=== PATIENT | female | born 1975 | race Caucasian/White ===

== ENCOUNTER 2018-03-31 15:28 | Emergency (ER) | payer OTHER, SELFPAY ==
--- NOTE | 2018-03-31 15:31 | ED_ITS ---
HPI - Epistaxis <Anali Scales PA-C - Last Filed: 03/31/18 19:03> General Chief complaint: Nasal Problem Stated complaint: NOSE WONT STOP BLEEDING Time Seen by Provider: 03/31/18 15:30 Source: patient Mode of arrival: ambulatory Limitations: no limitations History of Present Illness HPI Narrative: This healthy 42-year-old female comes in due to nosebleed today. She states that she has had nosebleeds about every other day for the last couple of weeks, but usually resolve in a few minutes. Mostly the left side. Today she states nosebleed started on the left side, then later began on the right. She states that she could not get it to stop for about an hour so came here. It has stopped now. She states that she does have allergies, but not really sneezing or blowing her nose more recently. She did use Nasacort today prior to this starting. She saw PCP and does have a referral to ENT but not being seen for about a month. She denies any trauma or injury. She denies any other new bleeding or bruising and is feeling otherwise well, no nausea. She states that she does have a history of nosebleeds but not for about 10 years. Related Data Home Medications Medication Instructions Recorded Confirmed levothyroxine 50 mcg PO DAILY 03/31/18 03/31/18 sertraline 50 mg PO DAILY 03/31/18 03/31/18 Allergies Allergy/AdvReac Type Severity Reaction Status Date / Time hydrocodone [From VICODIN] AdvReac Unknown NAUSEA Verified 03/31/18 15:40 VOMITING Review of Systems <Anali Scales PA-C - Last Filed: 03/31/18 19:03> Review of Systems All systems reviewed & are unremarkable except as noted in HPI and below Exam <Anali Scales PA-C - Last Filed: 03/31/18 19:03> Narrative Exam Narrative: GENERAL APPEARANCE: Patient sitting comfortably, in no distress. HEAD: No sinus TTP. EYES: PERRL, EOMI. NOSE: Nasal mucosa moderately edematous. There is some dark blood pooled in the left nare. No active source of anterior bleeding is seen on either side. Following instillation of Afrin on a cotton pledget, there is no active bleeding on the left side of the nose, mucosa is rough but nothing that appears especially friable or amenable to cauterization ORAL CAVITY: Normal oropharynx. THROAT: Small amount of blood noted NECK/THYROID: Neck supple LUNGS: Clear to auscultation bilaterally, no cough on exam. HEART: RRR without murmur, nl S1, S2, no S3 or S4. Initial Vital Signs Initial Vital Signs: Vital Signs Temperature 98.0 F 03/31/18 15:32 Pulse Rate 94 H 03/31/18 15:32 Respiratory Rate 20 03/31/18 15:32 Blood Pressure 154/89 H 03/31/18 15:32 Pulse Oximetry 97 03/31/18 15:32 <DO Alessandro Hogan Last Filed: 04/01/18 07:35> Initial Vital Signs Initial Vital Signs: Vital Signs Temperature 98.0 F 03/31/18 15:32 Pulse Rate 94 H 03/31/18 15:32 Respiratory Rate 20 03/31/18 15:32 Blood Pressure 154/89 H 03/31/18 15:32 Pulse Oximetry 97 03/31/18 15:32 Course <Anali Scales PA-C - Last Filed: 03/31/18 19:03> Orders Ordered: Discontinued Medications Oxymetazoline HCl (Afrin) 2 sprays NASAL NOW ONE Stop: 03/31/18 15:38 Last Admin: 03/31/18 15:40 Dose: 2 sprays Vital Signs - 8 hr 03/31/18 15:32 03/31/18 16:14 Temperature 98.0 F Pulse Rate 94 H 80 Respiratory Rate 20 18 Blood Pressure 154/89 H Blood Pressure [Left Arm] 138/78 H Pulse Oximetry 97 97 <DO Alessandro Hogan Last Filed: 04/01/18 07:35> Orders Ordered: Discontinued Medications Oxymetazoline HCl (Afrin) 2 sprays NASAL NOW ONE Stop: 03/31/18 15:38 Last Admin: 03/31/18 15:40 Dose: 2 sprays Vital Signs - 8 hr 03/31/18 15:32 03/31/18 16:14 Temperature 98.0 F Pulse Rate 94 H 80 Respiratory Rate 20 18 Blood Pressure 154/89 H Blood Pressure [Left Arm] 138/78 H Pulse Oximetry 97 97 Discharge Plan Departure Patient Disposition: Home, Self-Care Clinical Impression: Epistaxis Discharge Date/Time: 03/31/18 16:28 Interventions: ED Discharge Assessment Last Done: 03/31/18 16:27 Instructions: DI for Nosebleed Activity Restrictions/Additional Instructions: Stop using Nasacort or any fadr-eie-iatkera nasal spray because in some people these will cause irritation. If you have a nosebleed again, you can use the clamp that we gave you and a little bit of the nose spray that we gave you here on a cotton ball inside the nose. Return here as we talked about if you cannot get bleeding to stop or not feeling well. Otherwise, call [facility] and let them know you were seen in the emergency room for this and they may be able to get to an earlier appointment either in and a [facility] or their [place] office. Prescriptions: No Action sertraline 50 mg Tablet 50 mg PO DAILY RF: 0 levothyroxine 50 mcg Capsule 50 mcg PO DAILY RF: 0 Referrals: Sada Hernandez ARNP [Non-Staff] - Kush Guan MD [Physician] - <Jo Estrada DO - Last Filed: 04/01/18 07:35> Cosign ED Attending Nati Attestation: I was immediately available in the department for consultation. Documentation has been reviewed. I agree with assessment and plan.
[2018-03-31 15:32] VITALS: BP 154/89; PULSE 94; RESP 20; TEMP 36.7; O2SAT 97; BMI 41.6
[2018-03-31] MEDS: OXYMETAZOLINE NASAL SPRAY 15 ML 2 SPRAYS NASAL (15:40)
[2018-03-31 16:14] VITALS: BP 138/78; PULSE 80; RESP 18; O2SAT 97
== END 2018-03-31 16:28 | disposition home or self-care (01) ==
PROVIDERS: Emergency Provider Internal Medicine
DX: R04.0 Epistaxis (principal)
CPT/HCPCS: 99282; 99283

== ENCOUNTER → 2018-11-03 08:37 | Outpatient (CLI) | payer OTHER, SELFPAY ==
--- NOTE | 2018-11-03 | DI.MG.S_ITS ---
BILATERAL DIGITAL SCREENING MAMMOGRAM 3D/2D WITH CAD: 11/03/2018 CLINICAL: Routine screening. Comparison is made to exams dated: 10/16/2016 mammogram and 01/24/2015 mammogram - [facility]. The tissue of both breasts is heterogeneously dense. This may lower the sensitivity of mammography. Current study was also evaluated with a Computer Aided Detection (CAD) system. There are benign calcifications in both breasts. No significant masses, calcifications, or other findings are seen in either breast. There has been no significant interval change. IMPRESSION: There is no mammographic evidence of malignancy. A 1 year screening mammogram is recommended. This exam was interpreted at Station ID: [id number]. NOTE: For mammograms, a report in lay terms will be sent to the patient. Approximately 15% of breast malignancies will not be visualized mammographically. In the management of a palpable breast mass, a negative mammogram must not discourage biopsy of a clinically suspicious lesion. Electronically Signed By: Jaswant monaco/mya:11/08/2018 11:26:02 letter sent: Normal Exam ACR BI-RADS Category 2: Benign Finding(s) 3342F
== END ==
PROVIDERS: PCP Naturopath; Visit Provider Naturopath
DX: Z12.31 Encounter for screening mammogram for malignant neoplasm of breast (principal)
CPT/HCPCS: 77063; 77067

== ENCOUNTER → 2020-05-25 09:13 | Outpatient (CLI) | payer OTHER, SELFPAY ==
--- NOTE | 2020-05-25 09:17 | DI.MG.S_ITS ---
BILATERAL DIGITAL SCREENING MAMMOGRAM 3D/2D WITH CAD: 05/25/2020 CLINICAL: Routine screening. Comparison is made to exams dated: 11/03/2018 mammogram - [facility], 10/16/2016 mammogram, and 01/24/2015 mammogram - [facility]. The tissue of both breasts is heterogeneously dense. This may lower the sensitivity of mammography. Current study was also evaluated with a Computer Aided Detection (CAD) system. There are benign calcifications in both breasts. No significant masses, calcifications, or other findings are seen in either breast. There has been no significant interval change. IMPRESSION: BENIGN There is no mammographic evidence of malignancy. A 1 year screening mammogram is recommended. This exam was interpreted at Station ID: [id number]. NOTE: For mammograms, a report in lay terms will be sent to the patient. Approximately 15% of breast malignancies will not be visualized mammographically. In the management of a palpable breast mass, a negative mammogram must not discourage biopsy of a clinically suspicious lesion. Electronically Signed By: William street/mya:05/27/2020 07:58:49 letter sent: Normal Exam ACR BI-RADS Category 2: Benign Finding(s) 3342F
== END ==
PROVIDERS: PCP Naturopath; Referring Provider Naturopath; Visit Provider Naturopath
DX: Z12.31 Encounter for screening mammogram for malignant neoplasm of breast (principal)
CPT/HCPCS: 77063; 77067

== ENCOUNTER → 2021-07-25 16:13 | Outpatient (CLI) | payer OTHER, SELFPAY ==
--- NOTE | 2021-07-25 16:15 | DI.MG.S_ITS ---
BILATERAL DIGITAL SCREENING MAMMOGRAM 3D/2D WITH CAD: 07/25/2021 CLINICAL: Routine screening. Comparison is made to exams dated: 05/25/2020 mammogram, 11/03/2018 mammogram - [facility], and 10/16/2016 mammogram - [facility]. The tissue of both breasts is heterogeneously dense. This may lower the sensitivity of mammography. Current study was also evaluated with a Computer Aided Detection (CAD) system. There are benign calcifications in the left breast. No significant masses, calcifications, or other findings are seen in either breast. There has been no significant interval change. IMPRESSION: BENIGN There is no mammographic evidence of malignancy. A 1 year screening mammogram is recommended. This exam was interpreted at Station ID: [id number]. NOTE: For mammograms, a report in lay terms will be sent to the patient. Approximately 15% of breast malignancies will not be visualized mammographically. In the management of a palpable breast mass, a negative mammogram must not discourage biopsy of a clinically suspicious lesion. Electronically Signed By: Aneta orona/mya:07/28/2021 07:35:33 letter sent: Normal Exam ACR BI-RADS Category 2: Benign Finding(s) 3342F
== END ==
PROVIDERS: PCP Naturopath; Referring Provider Naturopath; Visit Provider Naturopath
DX: Z12.31 Encounter for screening mammogram for malignant neoplasm of breast (principal)
CPT/HCPCS: 77063; 77067

== ENCOUNTER → 2021-08-15 08:12 | Outpatient (CLI) | payer OTHER, SELFPAY ==
--- NOTE | 2021-08-15 | DI.US.S_ITS ---
ULTRASOUND OF RIGHT BREAST: 08/15/2021 CLINICAL: Palpable right breast lump by physician. Comparison is made to exams dated: 07/25/2021 mammogram, 05/25/2020 mammogram, 11/03/2018 mammogram - [facility], 10/16/2016 mammogram, and 01/24/2015 mammogram - [facility]. Color flow ultrasound of the right breast was performed. Fowler scale images of the real-time examination were reviewed. No significant abnormalities were seen sonographically in the right breast. Specifically, no finding to correspond to the patient's palpable abnormality. There is normal dense fibrous tissue in that area seen on mammogram and ultrasound. IMPRESSION: NEGATIVE There is no sonographic correlate to the patient's palpable abnormality and no evidence of malignancy. Return to annual mammogram screening schedule is recommended. Future imaging is recommended as follows: 07/26/2022 screening mammogram. Findings and recommendations were conveyed to the patient at time of exam. This exam was interpreted at Station ID: [id number]. Electronically Signed By: Aneta orona/:08/15/2021 08:42:08 letter sent: Normal Exam Ultrasound BI-RADS: 1 Negative
== END ==
PROVIDERS: PCP Naturopath; Referring Provider Naturopath; Visit Provider Naturopath
DX: N63.10 Unspecified lump in the right breast, unspecified quadrant
CPT/HCPCS: 76642

== ENCOUNTER → 2022-10-19 08:04 | Outpatient (CLI) | payer OTHER, SELFPAY ==
--- NOTE | 2022-10-19 | DI.MG.S_ITS ---
BILATERAL DIGITAL SCREENING MAMMOGRAM 3D/2D WITH CAD: 10/19/2022 CLINICAL: Routine screening. Comparison is made to exams dated: 07/25/2021 mammogram, 05/25/2020 mammogram, and 11/03/2018 mammogram - [facility]. Both breasts are heterogeneously dense, which may obscure small masses (category c / 51-75% glandular tissue). Current study was also evaluated with a Computer Aided Detection (CAD) system. There are benign calcifications in the left breast. No significant masses, calcifications, or other findings are seen in either breast. There has been no significant interval change. IMPRESSION: BENIGN There is no mammographic evidence of malignancy. A 1 year screening mammogram is recommended. This exam was interpreted at Station ID: [id number]. NOTE: For mammograms, a report in lay terms will be sent to the patient. Approximately 15% of breast malignancies will not be visualized mammographically. In the management of a palpable breast mass, a negative mammogram must not discourage biopsy of a clinically suspicious lesion. Electronically Signed By: Jaswant monaco/mya:10/19/2022 17:32:59 letter sent: Normal Exam ACR BI-RADS Category 2: Benign Finding(s) 3342F
== END ==
PROVIDERS: PCP Naturopath; Referring Provider Naturopath; Visit Provider Naturopath
DX: Z12.31 Encounter for screening mammogram for malignant neoplasm of breast (principal)
CPT/HCPCS: 77063; 77067

== ENCOUNTER → 2023-12-27 14:41 | Outpatient (CLI) | payer OTHER, SELFPAY ==
--- NOTE | 2023-12-27 14:44 | DI.MG.S_ITS ---
BILATERAL DIGITAL SCREENING MAMMOGRAM 3D/2D WITH CAD: 12/27/2023 CLINICAL: Routine screening. Comparison is made to exams dated: 10/19/2022 mammogram, 07/25/2021 mammogram, 05/25/2020 mammogram, and 11/03/2018 mammogram - [facility]. There are scattered areas of fibroglandular density in both breasts (category b / 25%-50% glandular tissue). Current study was also evaluated with a Computer Aided Detection (CAD) system. There are benign calcifications in both breasts. No significant masses, calcifications, or other findings are seen in either breast. There has been no significant interval change. IMPRESSION: BENIGN There is no mammographic evidence of malignancy. A 1 year screening mammogram is recommended. Based on the Tyrer Cuzick model (a risk assessment model) the patient's lifetime risk is 10.4% and her 10 year risk is 2.4%. According to the ACR, ACS, and NCCN guidelines, an annual breast MRI exam along with mammogram is recommended if the patient's lifetime risk is 20% or greater. This exam was interpreted at Station ID: [id number]. NOTE: For mammograms, a report in lay terms will be sent to the patient. Approximately 15% of breast malignancies will not be visualized mammographically. In the management of a palpable breast mass, a negative mammogram must not discourage biopsy of a clinically suspicious lesion. Electronically Signed By: William street/mya:12/27/2023 16:09:53 letter sent: Normal Exam ACR BI-RADS Category 2: Benign Finding(s) 3342F
== END ==
PROVIDERS: PCP Naturopath; Referring Provider Naturopath; Visit Provider Naturopath
DX: Z12.31 Encounter for screening mammogram for malignant neoplasm of breast (principal); R92.323 Mammographic fibroglandular density, bilateral breasts
CPT/HCPCS: 77063; 77067

== ENCOUNTER → 2024-10-23 10:50 | Outpatient (CLI) | payer OTHER, SELFPAY ==
--- NOTE | 2024-10-23 10:51 | DI.RAD.S_ITS ---
PROCEDURE: XR LUMBAR SPINE MIN 4V INDICATIONS: BACK PAIN TECHNIQUE: 5 views of the lumbar spine were acquired, including bilateral oblique views. COMPARISON: None. FINDINGS: Bones: 5 nonrib-bearing vertebrae are present. There is normal bony alignment. Mild degenerative endplate changes are noted throughout lumbar spine. No vertebral body compression fractures. No suspicious bony lesions. Soft tissues: Overlying bowel gas pattern is normal. No suspicious soft tissue calcifications. Oblique images: No pars defects. No significant bony foraminal stenosis. 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 No acute compression fracture or significant spondylolisthesis. No gross pars defects or significant bony foraminal stenosis on oblique views. Dictated by: Foster Schaefer M.D. on 10/23/2024 at 11:29 Approved by: Foster Schaefer M.D. on 10/23/2024 at 11:30
== END ==
PROVIDERS: PCP Naturopath; Referring Provider Physical Medicine & Rehabilitation; Visit Provider Physical Medicine & Rehabilitation
DX: M51.362 Other intervertebral disc degeneration, lumbar region with discogenic back pain and lower extremity pain (principal); M54.9 Dorsalgia, unspecified; M79.604 Pain in right leg
CPT/HCPCS: 72110

== ENCOUNTER → 2025-03-29 08:13 | Outpatient (CLI) | payer OTHER, SELFPAY ==
--- NOTE | 2025-03-29 08:16 | DI.MG.S_ITS ---
MM screening mammo BI: 03/29/2025. BI-RADS: 2 CLINICAL: 49-year old female for bilateral screening mammogram. Tyrer-Cuzick lifetime risk of 11.7%. No personal or first-degree family history of breast cancer. The patient is status-post reduction mammoplasty. PRIOR EXAMS 12/27/2023, 10/19/2022, 08/15/2021, 07/25/2021, MAMMOGRAPHY TECHNIQUE: 2D and 3D (tomosynthesis) digital mammographic views obtained, with additional images as needed for full coverage. Current study was also evaluated with a Computer Aided Detection (CAD) system. DENSITY B. There are scattered areas of fibroglandular density. MAMMOGRAPHY FINDINGS Bilateral: Benign-appearing calcifications noted. There are no suspicious masses, calcifications, or other findings in the breast. IMPRESSION: * No evidence of malignancy with benign findings. RECOMMENDATIONS Bilateral * Annual screening mammography. OVERALL ASSESSMENT CATEGORY BI-RADS-2: Benign. The [employer] recommends annual screening mammography beginning at age 40 for women with average risk of breast cancer. ELECTRONICALLY SIGNED: Jaswant Marrero M.D. on 04/01/2025 at 09:50:15 PM PT Interpreting Station ID: [id number]
== END ==
PROVIDERS: PCP Naturopath; Referring Provider Naturopath; Visit Provider Naturopath
DX: Z12.31 Encounter for screening mammogram for malignant neoplasm of breast (principal)
CPT/HCPCS: 77063; 77067